=== PATIENT | female | born 1945 | race Caucasian/White ===

== ENCOUNTER 2016-12-13 13:45 | Emergency (ER) | payer BC ==
[2016-12-13 15:14] VITALS: BP 153/76
--- NOTE | 2016-12-13 17:16 | UC ---
Neck Pain HPI - HPI Summary HPI Summary: The patient comes in today for: 1. Neck pain: Onset: She has a history of chronic "cervical disk problems"--almost has surgery 5 years ago. She has more pain since November 05. It has slowly been worsening. It is now worse than two weeks ago, but her main concern is about the bowel and bladder symptoms. Palliative/provocative: Getting the head in the right position helps. Quality: Ache Region: Back of the neck with radiation down through the shoulders. Severity: 04/14 Time: Constant. Associated symptoms: She recently moved here and has not connected with a local neurologist. Numbness: None. Weakness: None for sure. Bowel: She will have a bowel movement with urination in the AM. She has not been soiling her clothes. Bladder: She will have some stress incontinence. She will notice that she will have a flow of urine down her thighs when she approaches the toilet, but not during the regular part of the day. She wears a pad during the day to help with minor leakage. She does not have any relationship with a local primary care provider or neurologist or neurosurgeon. She was told that she needs to come here to get a referral. She complains of pincher weakness. She states that she has a herniated disc and spurs and osteoarthritis. * - History of Current Complaint Chief Complaint: UCUpperExtremity Stated Complaint: NECK PAIN Time Seen by Provider: 12/13/16 17:05 Hx Obtained From: Patient Hx Last Menstrual Period: "years ago." ?: No - Allergies/Home Medications Allergies/Adverse Reactions: Allergies Allergy/AdvReac Type Severity Reaction Status Date / Time Cefuroxime [From Ceftin] Allergy Nausea And Verified 12/13/16 15:14 Vomiting Codeine AdvReac Severe Vomiting Verified 12/13/16 15:14 CATS Allergy Severe ASTHMA Uncoded 12/13/16 15:14 Home Medications: Home Medications Multiple Vitamins W/ Minerals [Vitamins & Minerals] 1 tab PO DAILY 12/13/16 [ History Confirmed 12/13/16] PMH/Surg Hx/FS Hx/Imm Hx Previously Healthy: No - Skin cancer (basal cell). Endocrine History Of: Reports: Thyroid Disease - Cold nodule removed in s. She has a history of cysts on Rx to suppres Denies: Diabetes, Hyperthyroidism, Hypothyroidism, Dyslipidemia Cardiovascular History Of: Denies: Cardiac Disorders, Hypertension, Pacemaker/ICD, Myocardial Infarction , Congestive Heart Failure, Atrial Fibrillation, Deep Vein Thrombosis, Bleeding Disorders Respiratory History Of: Reports: Asthma Denies: COPD, Bronchitis, Pneumonia, Pulmonary Embolism GI/ History Of: Reports: Gastroesophageal Reflux - She controls with not eating before bed. Denies: Ulcer, Gastrointestinal Bleed, Gall Bladder Disease, Kidney Stones, Diverticulitis, Renal Disease, Urosepsis Neurological History Of: Denies: TIA, CVA, Dementia, Seizures, Migraine Psychological History Of: Denies: Anxiety, Depression, Bipolar Disorder, Schizophrenia, Post Traumatic Stress Disorder Cancer History Of: Denies: Lung Cancer, Colorectal Cancer, Breast Cancer, Cervical Cancer Other History Of: Negative For: HIV, Hepatitis B, Hepatitis C, Anticoagulant Therapy - Surgical History Surgical History: Yes Surgery Procedure, Year, and Place: tubal ligation; shoulder repair rotator cuff ; basal cell from leg; deviated septum repair and uvula blocked - Family History Known Family History: Positive: Cardiac Disease Negative: Hypertension - Social History Alcohol Use: Occasionally Substance Use Type: None Smoking Status (MU): Never Smoked Tobacco Review Of Systems Constitutional: Positive: Negative Skin: Positive: Negative Eyes: Positive: Negative ENT: Positive: Negative Respiratory: Positive: Negative Cardiovascular: Positive: Negative Gastrointestinal: Positive: Negative Genitourinary: Positive: Negative All Other Systems Reviewed And Are Negative: Yes Physical Exam Triage Information Reviewed: Yes Appearance: Well-Appearing, No Pain Distress, Well-Nourished Vital Signs: Initial Vital Signs Temp 98.6 F 12/13/16 15:07 Pulse 86 12/13/16 15:07 Resp 16 12/13/16 15:07 BP 153/76 12/13/16 15:07 Pulse Ox 99 12/13/16 15:07 Eyes: Positive: Conjunctiva Clear. Negative: Discharge ENT: Positive: Hearing grossly normal. Negative: Pharyngeal erythema, Nasal congestion, Nasal drainage, TM bulging, TM dull, TM red, Tonsillar swelling, Tonsillar exudate Dental: Negative: Gross Decay/Caries @, Dental Fracture @ Neck: Positive: Supple, Nontender, No Lymphadenopathy, Nuchal Rigidity Respiratory: Positive: Chest non-tender, No respiratory distress, No accessory muscle use. Negative: Rhonchi, Wheezing Cardiovascular: Positive: RRR, No Murmur Abdomen Description: Positive: Nontender, No Organomegaly, Soft. Negative: Distended, Guarding Musculoskeletal: Positive: Strength Intact, ROM Intact, No Edema, Other: - Neck : She has slight reduction of flexion and extension. Likewise there is similar reduction in bilateral rotation and flexion. Reflexes (biceps, triceps and brachioradialis) 2+/2 x 2. She has symmetrical muscle strength of the biceps, triceps, deltoid and scanning clerk strength bilaterally that is appropriate for age. She has "thumbs up" and thumb in a fist tests which were normal as well as the "pincher" test. Neurological: Positive: Alert, Muscle Tone Normal Psychological: Positive: Age Appropriate Behavior, Consolable Skin: Negative: rashes, breakdown Neck Pain Course/Dx - Course Course Of Treatment: Chronic neck pain, - Differential Dx/Diagnosis Provider Diagnoses: chronic neck pain. Discharge - Discharge Plan Condition: Stable Disposition: HOME Referrals: Sandra MARRERO,Kanika [Primary Care Provider] - Ash Nicolas MD [Medical Doctor] - As Soon As Possible (Please contact the neurologists office for an appointment as soon as you can. If you don't do well , or get worse between now and then, please go to the ER. )
== END 2016-12-13 17:42 | disposition home or self-care (01) ==
LOC: UCEAST 13:45
DX: M54.2 Cervicalgia (principal); Z88.1 Allergy status to other antibiotic agents; Z88.5 Allergy status to narcotic agent
CPT/HCPCS: 99211; G0463

== ENCOUNTER 2017-07-19 09:07 | Day surgery (SDC) | payer BC ==
[~2017-07-19 09:07] MED LIST: Buffered Lidocaine 0.9% SYRIN* 5 ML/SYR SYRINGE INTRADERM ONE; Metoclopramide TAB* 10 MG PO ONE; Sodium Citrate/Citric Acid* 15 ML UDC PO ONE
[2017-07-19] MEDS ORDERED: Sodium Citrate/Citric Acid* 15 ML UDC ONE (09:17)
[2017-07-19] MEDS ORDERED: Metoclopramide TAB* 10 MG ONE (09:17)
[2017-07-19] MEDS ORDERED: Buffered Lidocaine 0.9% SYRIN* 5 ML/SYR SYRINGE ONE (09:17)
[2017-07-19 09:46] LABS: Hematocrit 43 % (35-47); Hemoglobin 14.4 g/dl (12.0-16.0); Mean Corpuscular HGB Conc 34 g/dl (31-36); Mean Corpuscular Hemoglobin 30 pg (27-31); Mean Corpuscular Volume 87 fL (80-97); Mean Platelet Volume 7 um3 (7.4-10.4); Red Blood Count 4.86 10^6/ul (4.0-5.4); Red Cell Distribution Width 14 % (10.5-15); White Blood Count 5.5 10^3/ul (3.5-10.8)
[2017-07-19] MEDS ORDERED: fentaNYL* 50 MCG/ML 2 ML VIAL (100 MCG VIAL) ONE (10:14)
[2017-07-19] MEDS ORDERED: Midazolam* 1 MG/ML 2 ML VIAL (2 MG) ONE (10:15)
[2017-07-19] MEDS ORDERED: Chloroprocaine 2%* 20 ML VIAL ONE (10:15)
[2017-07-19] MEDS ORDERED: Ondansetron INJ* 2 MG/ML VIAL IV PRN (10:36)
[2017-07-19] MEDS ORDERED: DiMENhydriNATE IV* 50 MG/ML VIAL IV PUSH PRN (10:36)
[2017-07-19] MEDS ORDERED: Ketorolac INJ* 30 MG/ML 1 ML VIAL IV PUSH PRN (10:38)
[2017-07-19] MEDS ORDERED: Hydrocodone/APAP 5/300 (NF) TAB PO PRN (10:59)
[2017-07-19] MEDS ORDERED: Ibuprofen TAB* 600 MG PO PRN (10:59)
[2017-07-19 12:16] VITALS: BP 129/66
--- NOTE | 2017-07-20 04:00 | OP ---
DATE OF OPERATION: 07/19/17 [facility] DATE OF : 49 SURGEON: Lida Lux MD. ANESTHESIOLOGIST: Dr. Dick Petersen. ANESTHESIA: Spinal. PRE-OP DIAGNOSES: Thickened endometrium, pelvic prolapse. POST-OP DIAGNOSES: Thickened endometrium, pelvic prolapse. OPERATIVE PROCEDURE: Dilation, hysteroscopy, curettage. ESTIMATED BLOOD LOSS: Minimal, less than 20 cc. COMPLICATIONS: None. SPONGE COUNT: Correct X2. CONDITION: The patient was brought to recovery room, awake and in stable condition. FINDINGS: Retroverted uterus, no adnexal masses palpated. There is a grade 2 cystocele, a grade 2 rectocele, and uterus and cervix prolapse up to the level of the introitus with complete relaxation. The cervix appears normal. The uterus sounds to 8. The uterus is retroverted. There were no adnexal masses palpated. There was a small amount of polypoid tissue on hysteroscopy. DESCRIPTION OF PROCEDURE: The patient was brought to the operating room, when spinal anesthesia was found to be adequate, the patient was prepped and draped in the usual sterile fashion in the dorsal lithotomy position. Exam under anesthesia was performed with the above findings noted. A weighted speculum was placed in the vagina. The anterior lip of the cervix was grasped with a single tooth tenaculum and the cervix was gently and easily dilated with graduated Avelar dilators. The hysteroscope was introduced with the above findings noted. A curettage was performed. The polyp was removed and the hysteroscope was reintroduced and there was no retained tissue within the uterus. The remainder of the endometrium appeared atrophic. Both tubal ostia were visualized. The single-tooth tenaculum was removed from the cervix. Excellent hemostasis was noted. All instruments were removed from the vagina. The patient tolerated the procedure well, was brought to recovery room awake, and in stable condition. [id number]/[facility] #: [id number] MTDD
== END 2017-07-19 12:26 | disposition home or self-care (01) ==
LOC: OR 09:07
PROVIDERS: ATTEND Obstetrics & Gynecology
DX: N85.8 Other specified noninflammatory disorders of uterus (principal); N81.89 Other female genital prolapse; E89.0 Postprocedural hypothyroidism
CPT/HCPCS: 36415; 85027; 86850; 86900; 86901; 88305; A9270-GY; J2250; J2400; J3010

== ENCOUNTER 2019-09-20 03:28 | Emergency (ER) | payer MEDICARE, BC ==
--- OUTSIDE RECORDS SUMMARY | 2019-09-20 03:56 | XMS REPORT | Continuity of Care Document ---
:1945 External Reference #:[id number] Author Name Phyllis Acharya MD (transmitted by agent of provider Nedra Odom ) Address [address] [place] [address] Care Team Providers Name Role Phone Lida Lux MD - Obstetrics & Care Team Information Electrophonic Engineer [phone] Gynecology Problems Active Problems Provider Date Hypothyroidism John Newell NP Onset: 11/05/1969 History of subtotal thyroidectomy John Newell NP Onset: 01/05/2017 Note: 1969's [place] Vitamin D deficiency John Newell NP Onset: 01/05/2017 Benign paroxysmal positional vertigo John Newell NP Onset: 01/05/2017 Neck pain John Newell NP Onset: 01/05/2017 Cystocele with unspecified uterine Kevin Louis M.D.,FACP Onset: 2016 prolapse Osteochondritis dissecans Lamberto Webb MD Onset: 10/12/2017 Obstructive sleep apnea syndrome Margaret Sandoval DNP, RN, Onset: 04/26/2018 [employer] SUPER[employer] Hypersomnia Margaret Sandoval DNP, RN, Onset: 04/26/2018 [employer] Closed fracture of distal end of Millie Chen M.D. Onset: 11/22/2018 radius Social History Type Date Description Comments Sex Unknown Tobacco Use Start: Unknown Never Smoked Cigarettes Smoking Status Reviewed: 08/27/19 Never Smoked Cigarettes ETOH Use Consumes 7 glasses of wine per week Tobacco Use Start: Unknown Patient has never smoked Recreational Drug Use Denies Drug Use Exercise Type/Frequency Exercises regularly Exercise Type/Frequency Walks daily 20 minutes daily with dog Allergies, Adverse Reactions, Alerts Active Allergies Reaction Severity Comments Date Ceftin 06/11/2015 Codeine Moderate n/v 01/05/2017 Medications Active Medications SIG Qnty Indications Ordering Provider Date Baclofen take 1 tablet by 30tabs S13.4xxA Gabriella Ortega MD 05/15/2019 10mg Tablets mouth every 8 hours as needed for muscle spasms Vaniqa apply to effected 45gm L68.0 Lida Lux MD 04/11/2019 13.9% Cream area as needed Meclizine HCL 1/2-1 by mouth 30tabs H81.311 Kevin Morales 02/18/2018 25mg three times a day Marty Louis,FACP Tablets as needed Citrucel 1 tblsp in 8 oz. 454gm Kevin Morales 07/05/2017 Powder water by mouth Marty Louis,FACP every morning asneeded Omeprazole 1 by mouth once 30caps R10.13 Kevin Morales 03/22/2017 20mg daily as needed Marty Louis,FACP Capsules DR Morris HFBerto 2 puffs by mouth 8.500gm Stalin Elkins NP 02/27/2017 every 4 hours as 108(90Base) mcg/Act needed Aerosol Vitamin D take one capsule Unknown (Ergocalciferol) by mouth once daily 5000Unit Capsules Multi Complete daily Unknown Capsules Advil 2-3 tabs twice a Unknown 200mg Capsules day prn Synthroid take 1 tablet by 90tabs E89.0 Kevin Morales 75mcg mouth every day Marty Louis,FACP Tablets Immunizations CPT Code Status Date Vaccine Reaction Lot # [id number] Given 09/04/2018 Fluzone High Dose 72725 Given 10/16/2017 Pneumococcal Conjugate [id number] Vaccine 13 Valent For Intramuscular Use 80827 Given 08/28/2017 Influenza Virus Vaccine, [id number] Quadrivalent, Split, Preservative Free 30561 Given 02/27/2017 Tdap - no immediate reaction [id number] Tetanus/Diptheria/Acellular -PW Pertussis 72527 Given 10/23/2012 Pneumonia Vaccine 17137 Given 08/14/2012 Zoster (Zostavax) Vital Signs Date Vital Result Comment 08/27/2019 11:56am Height 67 inches 5'7" Weight 206.00 lb BP Systolic 124 mmHg BP Diastolic 80 mmHg Pain Level 2 BMI (Body Mass Index) 32.3 kg/m2 07/18/2019 8:28am Height 67 inches 5'7" Weight 206.50 lb Heart Rate 78 /min BP Systolic Sitting 124 mmHg Lue large cuff BP Diastolic Sitting 78 mmHg Lue large cuff Respiratory Rate 20 /min O2 % BldC Oximetry 97 % On Ra BMI (Body Mass Index) 32.3 kg/m2 Results Test Date Facility Test Result H/L Range Note Laboratory test 04/23/2019 [facility] C Reactive 4.86 mg/L Normal <8.[address] [place] [address] [phone] Urine Culture And 04/11/2019 [facility] Urine Culture SEE RESULT [address] [place] [address] [phone] Urinalysis Profile 04/11/2019 [facility] Urine Color Yellow [address] [place] [address] [phone] Urine Appearance Clear Urine Specific [place] 1.017 Normal 1.010-1.030 Urine pH 7.0 Normal 5-9 Urine Urobilinogen Negative Negative Urine Ketones Negative Negative Urine Protein Negative Negative Urine Leukocytes Negative Negative Urine Blood Negative Negative Urine Nitrite Negative Negative Urine Bilirubin Negative Negative Urine Glucose Negative Negative CBC Auto 03/27/2019 [facility] White Blood 6.3 10^3/uL Normal 3.5-10.[address] [place] [address] [phone] Red Blood Count 4.72 10^6/uL Normal 3.70-4.87 Hemoglobin 14.0 g/dL Normal 12.0-16.0 Hematocrit 42 % Normal 35-47 Mean Corpuscular Volume 89 fL Normal 80-97 Mean Corpuscular Hemoglobin 30 pg Normal 27-31 Mean Corpuscular HGB Conc 33 g/dL Normal 31-36 Red Cell Distribution Width 13 % Normal 10.5-15 Platelet Count 214 10^3/uL Normal 150-450 Mean Platelet Volume 8.0 fL Normal 7.4-10.4 Abs Neutrophils 3.9 10^3/uL Normal 1.5-7.7 Abs Lymphocytes 1.7 10^3/uL Normal 1.0-4.8 Abs Monocytes 0.4 10^3/uL Normal 0-0.8 Abs Eosinophils 0.3 10^3/uL Normal 0-0.6 Abs Basophils 0.0 10^3/uL Normal 0-0.2 Abs Nucleated RBC 0.0 10^3/uL Granulocyte % 62.1 % Lymphocyte % 27.2 % Monocyte % 6.2 % Eosinophil % 4.1 % Basophil % 0.4 % Nucleated Red Blood Cells % 0.0 Comp Metabolic 03/27/2019 [facility] Sodium 142 mmol/L Normal 135-[address] [place] [address] [phone] Potassium 4.3 mmol/L Normal 3.5-5.0 Chloride 105 mmol/L Normal 101-111 Co2 Carbon Dioxide 32 mmol/L Normal 22-32 Anion Gap 5 mmol/L Normal 2-11 Glucose 89 mg/dL Normal 70-100 Blood Urea Nitrogen 22 mg/dL Normal 6-24 Creatinine 0.98 mg/dL High 0.51-0.95 BUN/Creatinine Ratio 22.4 High 8-20 Calcium 9.8 mg/dL Normal 8.6-10.3 Total Protein 6.8 g/dL Normal 6.4-8.9 Albumin 4.4 g/dL Normal 3.2-5.2 Globulin 2.4 g/dL Normal 2-4 Albumin/Globulin Ratio 1.8 Normal 1-3 Total Bilirubin 0.80 mg/dL Normal 0.2-1.0 Alkaline Phosphatase 69 U/L Normal 34-104 Alt 16 U/L Normal 7-52 Ast 16 U/L Normal 13-39 Egfr Non- 55.9 >60 Egfr 67.7 >60 2 Laboratory 03/27/2019 [facility] TSH (Thyroid 1.66 Normal 0.34 -5.60 test finding [address] Stim Horm) mcIU/[place] [address] [phone] C Reactive Protein 9.75 mg/L High <8.01 Vitamin B12 520 pg/mL Normal 180-914 3 Vitamin D Total 25(Oh) 35.2 ng/mL Normal 20-50 4 Lipase < 10 U/L Low 11.0-82.0 1 SEE RESULT BELOW Name: LAQUITA PATTERSON : [address]: Lida Lux MD Acct: [id number] Unit: [id number] AGE: 73 Location: [facility] Re04/11/19 SEX: F Status: REG REF SPEC: [id number] PATY: 04/11/19-[address]: Lida Lux MD REQ: [id number] RECD: 04/11/19 STATUS: COMP _ SOURCE: URINE SPDESC: ORDERED: Urine Culture COMMENTS: [id number] Procedure Result Reported Site Urine Culture Final 04/13/19- 0811 ML No growth of clinically significant organisms * ML - Main Lab . END OF REPORT DEPARTMENT OF PATHOLOGY, [address] [place] [address] Hamzah Martin M.D. Director [facility] # [id number] 2 Because ethnic data is not always readily available, this report includes an eGFR for both -Americans and non- Americans. The National Kidney Disease Education Program (NKDEP) does not endorse the use of the MDRD equation for patients that are not between the ages of 18 and 70, are , have extremes of body size, muscle mass, or nutritional status, or are non- or non-. According to the National Kidney Foundation, irrespective of diagnosis, the stage of the disease is based on the level of kidney function: Stage Description GFR(mL/min/1.73 m(2)) 1 Kidney damage with normal or decreased GFR 90 2 Kidney damage with mild decrease in GFR 60-89 3 Moderate decrease in GFR 30-59 4 Severe decrease in GFR 15-29 5 Kidney failure <15 (or dialysis) 3 Normal Range 180 to 914 Indeterminate Range 145 to 180 Deficient Range <145 4 Total 25-Hydroxyvitamin D2 and D3 (25-OH-VitD) <10 ng/mL (severe deficiency) 10-19 ng/mL (mild to moderate deficiency) 20-50 ng/mL (optimum levels) 51-80 ng/mL (increased risk of hypercalciuria) >80 ng/mL (toxicity possible) Procedures Date Code Description Status 12/11/2018 [id number] Mammogram Completed 08/30/2018 [id number] Colonoscopy Completed 12/10/2017 [id number] Mammogram Completed 10/19/2017 [id number] Bone Mineral Density Test Completed 11/08/2016 [id number] Mammogram Completed Medical Devices Description No Information Available Encounters Type Date Location Provider Dx Diagnosis Office Visit 07/18/2019 Pulmonology And Margaret G47.33 Obstructive sleep 8:15a [facility] Sandoval, RN, apnea (adult) [facility] SHIPPING 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-BC (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) Office Visit 05/23/2019 Neuro[facility] M50.30 Other cervical disc 2:30p Services Of Susanna Acharya MD degeneration, unsp cervical region Office Visit 05/15/2019 [facility] Internal Gabriella Ortega MD S13.4xxA Sprain of ligaments 1:20p Medicine - Ccmob of cervical spine, initial encounter Office Visit 04/23/2019 Sp[facility] Of Brittnee Walter M51.36 Other intervertebral 3:30p [facility] PA-C disc degeneration, lumbar region M43.16 Spondylolisthesis, lumbar region M41.9 Scoliosis, unspecified M48.061 Spinal stenosis, lumbar region without neurogenic wong M50.30 Other cervical disc degeneration, unsp cervical region Office Visit 04/11/2019 11:00a [facility], R32 Unspecified urinary [facility] incontinence N81.10 Cystocele, unspecified L68.0 Hirsutism Office Visit 03/27/2019 3:00p [facility] Internal Stalin Elkins NP Z00.00 Encntr for Medicine - Ccmob general adult medical exam w/o abnormal findings E03.9 Hypothyroidism, unspecified I10 Essential (primary) hypertension E78.2 Mixed hyperlipidemia G47.33 Obstructive sleep apnea (adult) (pediatric) M79.606 Pain in leg, unspecified I73.9 Peripheral vascular disease, unspecified R53.83 Other fatigue Office Visit 03/12/2019 Spine Navigator Brittnee Walter M43.16 Spondylolisthesis, 1:30p Of [facility] PA-C lumbar region Assessments Date Code Description Provider 08/27/2019 M50.30 Other cervical disc degeneration, Phyllis Acharya MD unspecified cervical regio 08/27/2019 M51.36 Other intervertebral disc Phyllis Acharya MD degeneration, lumbar region 08/27/2019 M43.16 Spondylolisthesis, lumbar region Phyllis Acharya MD 08/27/2019 M41.9 Scoliosis, unspecified Phyllis Acharya MD 08/27/2019 M48.061 Spinal stenosis, lumbar region Phyllis Acharya MD without neurogenic claudicati 07/18/2019 G47.33 Obstructive sleep apnea (adult) Margaret Sandoval DNP, RN, (pediatric) [facility]- 05/23/2019 M50.30 Other cervical disc degeneration, Phyllis Acharya MD unspecified cervical regio 05/15/2019 S13.4xxA Sprain of ligaments of cervical Gabriella MD [facility] spine, initial encounter 04/23/2019 M51.36 Other intervertebral disc Brittnee Walter PA-C degeneration, lumbar region 04/23/2019 M43.16 Spondylolisthesis, lumbar region Brittnee Walter PA-C 04/23/2019 M41.9 Scoliosis, unspecified LADAN Kennedy-Benjy 04/23/2019 M48.061 Spinal stenosis, lumbar region Brittnee Walter PA-C without neurogenic claudicati 04/23/2019 M50.30 Other cervical disc degeneration, Brittnee Walter PA-C unspecified cervical regio 04/11/2019 R32 Unspecified urinary incontinence Lida Lux MD 04/11/2019 N81.10 Cystocele, unspecified Lida Lxu MD 04/11/2019 L68.0 Hirsutism Lida Lux MD 03/27/2019 Z00.00 Encounter for general adult medical Stalin Elkins NP examination without abno 03/27/2019 E03.9 Hypothyroidism, unspecified Stalin Elkins NP 03/27/2019 I10 Essential (primary) hypertension Stalin Elkins NP 03/27/2019 E78.2 Mixed hyperlipidemia Stalin Elkins NP 03/27/2019 G47.33 Obstructive sleep apnea (adult) Stalin Elkins NP (pediatric) 03/27/2019 M79.606 Pain in leg, unspecified Stalin Elkins NP 03/27/2019 I73.9 Peripheral vascular disease, Stalin Elkins NP unspecified 03/27/2019 R53.83 Other fatigue Stalin Elkins NP 03/12/2019 M43.16 Spondylolisthesis, lumbar region Brittnee Walter PA-C Plan of Treatment Future Appointment(s):11/14/2019 10:30 am - Phyllis Acharya MD at [facility]08/27/2019 - Phyllis Acharya, MDM50.30 Other cervical disc degeneration, unsp cervical regionNew Xrays:MRI Thoracic Spine W/O , Ordered: 08/27/19M51.36 Other intervertebral disc degeneration, lumbar regionNew Therapy:Physical TherapyFollow up:RV in 2 months after MRI of T spine. Patient will lonnie if she would like to proceed with surgery earlier.M43.16 Spondylolisthesis, lumbar ckldyoE16.9 Scoliosis, dqbqjzyuiehI73.061 Spinal stenosis, lumbar region without neurogenic wong Functional Status Description No Information Available Mental Status Description No Information Available Referrals Refer to Reason for Referral Status Appt Date Tonny Milner MD Sent 06/17/2019 [address] [place] [address] [phone] Carl Fleming MD Sent 08/08/[address] [place] [id number] [phone]
--- OUTSIDE RECORDS SUMMARY | 2019-09-20 03:56 | XMS REPORT | Continuity of Care Document ---
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 Gynecology Problems Active Problems Provider Date Hypothyroidism John Newell NP Onset: 11/05/1969 History of subtotal thyroidectomy John Newell NP Onset: 01/05/2017 Note: s [place] Vitamin D deficiency John Newell NP Onset: 01/05/2017 Benign paroxysmal positional vertigo John Newell NP Onset: 01/05/2017 Neck pain John Newell NP Onset: 01/05/2017 Cystocele with unspecified uterine Kevin Lousi M.D.,FACP Onset: 2016 prolapse Osteochondritis dissecans Lamberto Webb MD Onset: 10/12/2017 Obstructive sleep apnea syndrome Margaret Sandoval DNP, RN, Onset: 04/26/2018 SPECIALTY DEVELOPMENT CONSULTANT-BC Hypersomnia Margaret Sandoval DNP, RN, Onset: 04/26/2018 SPECIALTY DEVELOPMENT CONSULTANT-BC Closed fracture of distal end of Millie [...] Vaniqa apply to effected 45gm L68.0 Lida Lxu MD 04/11/2019 13.9% Cream area as needed Meclizine HCL 1/2-1 by mouth 30tabs H81.311 Kevin Morales 02/18/2018 25mg three times a day Mraty Louis,FACP Tablets as needed Citrucel 1 tblsp [...] Code Status Date Vaccine Reaction Lot # [id number] Given 09/04/2018 Fluzone High Dose 10648 Given 10/16/2017 Pneumococcal Conjugate [id number] Vaccine 13 Valent For Intramuscular Use 55340 Given 08/28/2017 Influenza Virus Vaccine, [id number] Quadrivalent, Split, Preservative Free 53107 Given 02/27/2017 Tdap - no immediate reaction [id number] Tetanus/Diptheria/Acellular -PW Pertussis 04993 Given 10/23/2012 Pneumonia Vaccine [id number] Given 08/14/2012 Zoster (Zostavax) Vital Signs Date [...] Result H/L Range Note Laboratory test 04/23/2019 [facility] C Reactive 4.86 mg/L Normal <8.[address] [place] [address] [phone] Urine Culture And 04/11/2019 [facility] Urine Culture SEE RESULT [address] [place] [address] [phone] Urinalysis Profile 04/11/2019 [facility] Urine Color Yellow [address] [place] [address] [phone] Urine Appearance Clear Urine Specific [place] 1.017 Normal 1.010-1.030 Urine pH 7.0 Normal 5-9 Urine Urobilinogen Negative Negative Urine Ketones Negative Negative Urine Protein Negative Negative Urine Leukocytes Negative Negative Urine Blood Negative Negative Urine Nitrite Negative Negative Urine Bilirubin Negative Negative Urine Glucose Negative Negative CBC Auto 03/27/2019 [facility] White Blood 6.3 10^3/uL Normal 3.5-10.[address] [place] [address] [phone] Red Blood Count 4.72 10^6/uL Normal 3.70-4.87 [...] Blood Cells % 0.0 Comp Metabolic 03/27/2019 [facility] Sodium 142 mmol/L Normal 135-[address] [place] [address] [phone] Potassium 4.3 mmol/L Normal 3.5-5.0 Chloride 105 [...] >60 Egfr 67.7 >60 2 Laboratory 03/27/2019 [facility] TSH (Thyroid 1.66 Normal 0.34 -5.[address] Stim Horm) mcIU/[place] [address] [phone] C Reactive Protein 9.75 mg/L High <8.01 Vitamin B12 520 pg/mL Normal 180-914 3 Vitamin D Total 25(Oh) 35.2 ng/mL Normal 20-50 4 Lipase < 10 U/L Low 11.0-82.0 1 SEE RESULT BELOW Name: LAQUITA PATTERSON : [address]: Lida Lux MD Acct: [id number] Unit: [id number] AGE: 73 Location: [facility] Re04/11/19 SEX: F Status: REG REF SPEC: [id number] PATY: 04/11/19-[address] [facility] [address]: Lida Lux MD REQ: [id number] RECD: 04/11/19 STATUS: COMP _ SOURCE: URINE SPDESC: ORDERED: Urine Culture COMMENTS: [id number] Procedure Result Reported Site Urine Culture Final 04/13/19- 0811 ML No growth of clinically significant organisms * ML - Main Lab . END OF REPORT DEPARTMENT OF PATHOLOGY, [address] [place] [address] Hamzah Martin M.D. Director [facility] # [id number] 2 Because ethnic data is not always [...] possible) Procedures Date Code Description Status 12/11/2018 [id number] Mammogram Completed 08/30/2018 [id number] Colonoscopy Completed 12/10/2017 [id number] Mammogram Completed 10/19/2017 [id number] Bone Mineral Density Test Completed 11/08/2016 [id number] Mammogram Completed Medical Devices Description No Information Available Encounters Type Date Location Provider Dx Diagnosis Office Visit 07/18/2019 Pulmonology And Margaret G47.33 Obstructive sleep 8:15a [facility] BEN Sandoval, RN, apnea (adult) [facility] SPECIALTY DEVELOPMENT CONSULTANT-BC (pediatric) Office Visit 05/23/2019 Neurosurgery Vassilios M50.30 Other cervical disc 2:30p Services Of Susanna Acharya MD degeneration, unsp cervical region Office Visit 05/15/2019 [facility] Internal Gabriella Ortega MD S13.4xxA Sprain of ligaments 1:20p Medicine - Ccmob of cervical spine, initial encounter Office Visit 04/23/2019 Spine Navigator Of Brittnee Walter M51.36 Other intervertebral 3:30p [facility] PA-C disc degeneration, lumbar region M43.16 Spondylolisthesis, lumbar region M41.9 Scoliosis, unspecified M48.061 Spinal stenosis, lumbar region without neurogenic wong M50.30 Other cervical disc degeneration, unsp cervical region Office Visit 04/11/2019 11:00a [facility] [place], R32 Unspecified urinary Clinic of [facility] incontinence N81.10 Cystocele, unspecified L68.0 Hirsutism Office Visit 03/27/2019 3:00p [facility] Internal Stalin Elkins NP Z00.00 Encntr for Medicine - Ccmob general adult medical exam w/o abnormal findings E03.9 Hypothyroidism, unspecified I10 Essential (primary) hypertension E78.2 Mixed hyperlipidemia G47.33 Obstructive sleep apnea (adult) (pediatric) M79.606 Pain in leg, unspecified I73.9 Peripheral vascular disease, unspecified R53.83 Other fatigue Office Visit 03/12/2019 Spine Navigator Brittnee Walter M43.16 Spondylolisthesis, 1:30p Of [facility] PA-C lumbar region Assessments Date Code [...] apnea (adult) Margaret Sandoval DNP, RN, (pediatric) [facility]- 05/23/2019 M50.30 Other cervical disc degeneration, Phyllis Acharya MD unspecified cervical regio 05/15/2019 S13.4xxA Sprain of ligaments of cervical Gabriellarosalind Ortega MD spine, initial encounter 04/23/2019 M51.36 Other intervertebral disc Brittnee Walter PA-C degeneration, lumbar region 04/23/2019 M43.16 Spondylolisthesis, lumbar region LADAN Kennedy-C 04/23/2019 M41.9 Scoliosis, unspecified LADAN Kennedy-C 04/23/2019 M48.061 Spinal stenosis, lumbar region Brittnee Walter PA-C without neurogenic claudicati 04/23/2019 M50.30 Other cervical disc degeneration, LADAN Kennedy-C unspecified cervical regio 04/11/2019 R32 Unspecified urinary incontinence Lida Lux MD 04/11/2019 N81.10 Cystocele, unspecified Lida Lux MD 04/11/2019 L68.0 Hirsutism Lida Lux MD 03/27/2019 Z00.00 Encounter for general adult medical Stalin Elkins NP examination without abno 03/27/2019 E03.9 Hypothyroidism, unspecified Stalin Elkins NP 03/27/2019 I10 Essential (primary) hypertension Stalin Elkins NP 03/27/2019 E78.2 Mixed hyperlipidemia Stalin Elkins NP 03/27/2019 G47.33 Obstructive sleep apnea (adult) Stalin Elkins NP (pediatric) 03/27/2019 M79.606 Pain in leg, unspecified Stalinjoni Elkins NP 03/27/2019 I73.9 Peripheral vascular disease, Stalin Elkins NP unspecified 03/27/2019 R53.83 Other fatigue Stalin Elkins NP 03/12/2019 M43.16 Spondylolisthesis, lumbar region Brittnee Walter PA-C Plan of Treatment Future Appointment(s):11/14/2019 10:30 am - Phyllis Acharya MD at [facility]08/27/2019 - Vassilios Dimopoulos, MDM50.30 Other cervical disc degeneration, unsp cervical regionNew Xrays:MRI Thoracic Spine W/O , Ordered: 08/27/19M51.36 Other intervertebral disc degeneration, lumbar regionNew Therapy:Physical TherapyFollow up:RV in 2 months after MRI of T spine. Patient will lonnie if she would like to proceed with surgery earlier.M43.16 Spondylolisthesis, lumbar hdcnwgJ00.9 Scoliosis, kkwnjhwkkpjC89.061 Spinal stenosis, lumbar region without neurogenic wong Functional Status Description No Information Available Mental Status Description No Information Available Referrals Refer to Reason for Referral Status Appt Date Tonny Milner MD Sent 06/17/2019 [address] [place] [address] [phone] Carl Fleming MD Sent 08/08/[address] [place] [address] [phone]
[2019-09-20 04:24] LABS: ABS Eosinophils 0.2 10^3/ul (0-0.6); ABS Lymphocytes 2.1 10^3/ul (1.0-4.8); ABS Monocytes 0.4 10^3/ul (0-0.8); ABS Neutrophils 3.8 10^3/ul (1.5-7.7); Eosinophil % 3.6 %; Hematocrit 45 % (35-47); Hemoglobin 14.9 g/dL (12.0-16.0); Lymphocyte % 31.9 %; Mean Corpuscular HGB Conc 34 g/dL (31-36); Mean Corpuscular Hemoglobin 30 pg (27-31); Mean Corpuscular Volume 91 fL (80-97); Mean Platelet Volume 7.3 fL (7.4-10.4); Nucleated Red Blood Cells % 0.1; Platelet Count 171 10^3/uL (150-450); Red Blood Count 4.91 10^6 /uL (3.70-4.87); Red Cell Distribution Width 14 % (10-15); White Blood Count 6.6 10^3/uL (3.5-10.8)
--- NOTE | 2019-09-20 04:25 | ED ---
HPI Chest Pain - HPI Summary HPI Summary: This pt is a 74 Y/O F presenting to [facility] with a CC of chest pain that is currently rated a 5/10 in severity and states that the pain, which is described as pressure, woke her up at 0130. 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 She states that the pain is located underneath her L shoulder blade and occasionally radiates into her L jaw. She states that she got changed and then tried to fall back asleep. She denies any fevers, chills, SOB, headaches, and N/V. She states that she has radiculopathy, which wakes her up in the night if she does not readjust her position but states that the pain usually resolves after she goes to the bathroom. She has no aggravating or alleviating factors. She has a PMHx of sleep apnea, radiculopathy and HTN. - History of Current Complaint Chief Complaint: EDChestWallPain Time Seen by Provider: 09/20/19 04:10 Hx Obtained From: Patient Hx Last Menstrual Period: "years ago." Onset/Duration: Started Hours Ago - 3, Still Present Time of Onset: 01:30 Timing: Constant Initial Severity: Moderate Current Severity: Moderate Pain Intensity: 5 Pain Scale Used: 0-10 Numeric Chest Pain Location: Left Anterior Chest Pain Radiates: Yes Chest Pain Radiates To:: Shoulder, Jaw Character: Pressure/Squeezing Aggravating Factor(s): Nothing Alleviating Factor(s): Nothing Associated Signs and Symptoms: Positive: Chest Pain - left anterior, Other: - radiated pain in her L jaw and L shoulder. Negative: Headaches, Shortness of Breath, Fever, Chills, Nausea, Vomiting - Allergy/Home Medications Allergies/Adverse Reactions: Allergies Allergy/AdvReac Type Severity Reaction Status Date / Time cefuroxime Allergy Nausea And Verified 08/25/19 13:57 Vomiting codeine Allergy Vomiting Verified 08/25/19 13:57 CATS Allergy Severe ASTHMA Uncoded 08/25/19 13:57 PMH/Surg Hx/FS Hx/Imm Hx Previously Healthy: Yes Endocrine/Hematology History: Reports: Hx Thyroid Disease Denies: Hx Anticoagulant Therapy, Hx Diabetes, Hx Anemia Cardiovascular History: Denies: Hx Congestive Heart Failure, Hx Deep Vein Thrombosis, Hx Hypertension , Hx Myocardial Infarction, Hx Pacemaker/ICD Respiratory History: Reports: Hx Asthma - HAS INHALER, USES PRN, Hx Sleep Apnea - STATES YEARS AGO Dx, HAD SURGERY ON PALET, STILL HAS MINIMAL PROBLEMS Denies: Hx Chronic Obstructive Pulmonary Disease (COPD), Hx Lung Cancer, Hx Pneumonia, Hx Pulmonary Embolism GI History: Denies: Hx Gall Bladder Disease, Hx Gastrointestinal Bleed, Hx Jaundice, Hx Ulcer, Hx Urosepsis History: Reports: Hx Kidney Stones - 1979, PASSED ON OWN, NONE SINCE Denies: Hx Renal Disease Musculoskeletal History: Reports: Other Musculoskeletal History - 2010 FRACTURED THORACIC (NO SURGERY) WORE BRACE Denies: Hx Osteoporosis Sensory History: Reports: Hx Contacts or Glasses - GLASSES Denies: Hx Hearing Aid Opthamlomology History: Reports: Hx Contacts or Glasses - GLASSES Neurological History: Reports: Other Neuro Impairments/Disorders - Hx OF VIRTIGO , NO PROBLEMS RECENT YEARS / PAIN CLINIC PT. LUMBAR Denies: Hx Dementia, Hx Migraine, Hx Seizures, Hx Transient Ischemic Attacks (TIA) Psychiatric History: Reports: Hx Anxiety, Hx Depression - OCCASSIONAL, HAS TAKEN MEDS IN PAST , NON CURRENTLY Denies: Hx Panic Disorder, Hx Schizophrenia, Hx Bipolar Disorder - Cancer History Cancer Type, Location and Year: BASAL CELL LEGS Hx Chemotherapy: No Hx Radiation Therapy: No - Surgical History Surgical History: Yes Surgery Procedure, Year, and Place: 1971 tubal ligation; [facility]. 2011 Rt shoulder repair rotator cuff; [place]. 1999 basal cell from Rt leg; [facility]. 1997 deviated septum repair and uvula/soft palate reduction [place]. 2017 [facility] for benign uterine polyp. 1972 PARTIAL THYROIDECTOMY [place]. Lt BREAST BIOPSY CLIPS - BENIGN [place] Hx Anesthesia Reactions: No Infectious Disease History: No Infectious Disease History: Denies: Hx Clostridium Difficile, Hx Hepatitis, Hx Human Immunodeficiency Virus (HIV), Hx of Known/Suspected MRSA, Hx Shingles, Hx Tuberculosis, Hx Known/ Suspected VRE, Hx Known/Suspected VRSA, History Other Infectious Disease, Traveled Outside the [place] in Last 30 Days - Family History Known Family History: Positive: Cardiac Disease Negative: Hypertension - Social History Occupation: Retired Lives: Alone Alcohol Use: Daily Alcohol Amount: 2-3 drinks Substance Use Type: Reports: None Hx Tobacco Use: No Smoking Status (MU): Never Smoked Tobacco Review of Systems Negative: Fever, Chills Positive: Chest Pain - left anterior Negative: Shortness Of Breath Negative: Vomiting, Nausea Musculoskeletal: Other - radiated L jaw pain and L shoulder pain Negative: Headache All Other Systems Reviewed And Are Negative: Yes Physical Exam - Summary Physical Exam Summary: Appearance: Well-appearing, Well-nourished, lying in bed comfortably Skin: Warm, dry, no obvious rash Eyes: sclera anicteric, no conjunctival pallor ENT: mucous membranes moist, pharynx appears normal Neck: Supple, nontender Respiratory: Clear to auscultation, no signs of respiratory distress Cardiovascular: Normal S1, S2. No murmurs. Normal distal pulses in tibial and radial bilaterally. Abdomen: Soft, nontender, normal active bowel sounds present Musculoskeletal: Normal, Strength/ROM Intact Neurological: A&Ox3, awake and alert, mentation is normal, speech is fluent and appropriate Psychiatric: affect is normal, does not appear anxious or depressed Triage Information Reviewed: Yes Vital Signs On Initial Exam: Initial Vitals Temp Pulse Resp BP Pulse Ox 98.0 F 91 18 184/91 98 09/20/19 03:38 09/20/19 03:38 09/20/19 03:38 09/20/19 03:38 09/20/19 03:38 Vital Signs Reviewed: Yes Procedures - Sedation Patient Received Moderate/Deep Sedation with Procedure: No Diagnostics - Vital Signs Vital Signs Temp Pulse Resp BP Pulse Ox 09/20/19 03:38 98.0 F 91 18 184/91 98 - Laboratory Result Diagrams: 09/20/19 04:07 09/20/19 06:28 Lab Statement: Any lab studies that have been ordered have been reviewed, and results considered in the medical decision making process. - Radiology CXR Radiology Interpretation Completed By: ED Physician Summary of Radiographic Findings: No acute processes, pending offical review. Re-Evaluation - Re-Evaluation First Eval Re-Evaluation Time: 06:56 Change: Unchanged Comment: Pt has a heart score of 2. Chest Pain Course/Dx - Course Course Of Treatment: This pt is a 74 Y/O F presenting to [facility] with a CC of chest pain that is currently rated a 5/10 in severity and states that the pain, which is described as pressure, woke her up at 0130. 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 She states that the pain is located underneath her L shoulder blade and occasionally radiates into her L jaw. She states that she got changed and then tried to fall back asleep. She denies any fevers, chills, SOB, headaches, and N/V. Her PE found no abnormalities. Her CXR has no acute processes. She will be a sign out to Dr. Reeder at shift change 0700 09/20/19 pending her 2nd Troponin. She has a HEART score of 2 and a Dx of chest pain. - Diagnoses Provider Diagnoses: Chest pain Discharge ED - Sign-Out/Discharge Documenting (check all that apply): Sign-Out Patient Signing out patient TO: Tony Reeder - Discharge Plan Condition: Good Disposition: HOME Patient Education Materials: Chest Pain (ED) Referrals: Gabriella Ortega MD [Primary Care Provider] - 3 Days - Billing Disposition and Condition Condition: GOOD Disposition: Home - Attestation Statements Document Initiated by Ilyae: Yes Documenting Scribe: Rocky Bryant Provider For Whom Garrick is Documenting (Include Credential): Jose Burr MD Scribe Attestation: Rocky Trejo, scribed for Jose Burr MD on 09/20/19 at 2127. Scribe Documentation Reviewed: Yes Provider Attestation: The documentation as recorded by the Rocky mauricio accurately reflects the service I personally performed and the decisions made by Jose mcdonald MD Status of Scribe Document: Viewed
[2019-09-20 04:29] LABS: ALT 19 U/L (7-52); Albumin 4.4 g/dL (3.2-5.2); Albumin/Globulin Ratio 1.4 (1-3); Alkaline Phosphatase 61 U/L (34-104); BUN/Creatinine Ratio 21.7 (8-20); Blood Urea Nitrogen 20 mg/dL (6-24); CO2 Carbon Dioxide 25 mmol/L (22-32); Calcium 9.5 mg/dL (8.6-10.3); Chloride 104 mmol/L (101-111); EGFR African American 72.6 (>60); Globulin 3.1 g/dL (2-4); Glucose 84 mg/dL (70-100); Sodium 136 mmol/L (135-145); Total Protein 7.5 g/dL (6.4-8.9)
[2019-09-20 04:38] LABS: Anion Gap 7 mmol/L (2-11)
[2019-09-20 07:08] LABS: Potassium Redraw 4.1 mmol/L (3.5-5.0)
--- NOTE | 2019-09-20 07:19 | ED ---
Progress - Progress Note Progress Note: This patient was signed out from Dr. Burr to Dr. Reeder at 0700 on 09/20/19, pending disposition, awaiting second troponin. Second troponin is 0. The patient s condition is stable and will be discharged to home with Dx of chest pain. Re-Evaluation - Re-Evaluation First Eval Re-Evaluation Time: 08:01 Change: Unchanged Comment: Discussed results and plan of care with pt. Course/Dx - Course Course Of Treatment: This patient was signed out by Dr. Quijano at shift change. He reports that the patient came in with the chief complaint of chest pain, he has done all the workup has been negative. He recommends to get a second troponin and if the troponin is negative for the patient to be discharged home with follow-up with primary care physician. Dr. Quijano reports that the heart score is equal to 2. I discussed all the findings and test results with the patient. Patient was instructed to return to the emergency room immediately if any of the symptoms return or worsens. Plan of care was discussed with the patient, who understands and agrees. All questions were answered to patient's satisfaction. There were no further complaints or concerns. Lung exam before discharge: CTA B/L. Good air exchange. No wheezing or crackles heard. CVS: S1 and S2 present. No murmurs appreciated. Patient is alert and oriented x 3. Patient is hemodynamically stable. Patient will be discharged home with follow up PCP in the next 2-3 days - Diagnoses Provider Diagnoses: Chest pain Discharge ED - Sign-Out/Discharge Documenting (check all that apply): Patient Departure - Discharge - Discharge Plan Condition: Good Disposition: HOME Patient Education Materials: Chest Pain (ED) Referrals: Gabriella Ortega MD [Primary Care Provider] - 3 Days - Billing Disposition and Condition Condition: GOOD Disposition: Home - Attestation Statements Document Initiated by Scribe: Yes Documenting Scribe: Madhuri Pickering Provider For Whom Garrick is Documenting (Include Credential): Tony Reeder MD Scribe Attestation: Madhuri Trejo scribed for Tony Reeder MD on 09/20/19 at 1104. Scribe Documentation Reviewed: Yes Provider Attestation: The documentation as recorded by the Madhuri mauricio accurately reflects the service I personally performed and the decisions made by me, Tony Reeder MD Status of Scribe Document: Viewed
[2019-09-20 07:45] VITALS: BP 130/66
== END 2019-09-20 08:00 | disposition home or self-care (01) ==
LOC: ED 03:28
DX: R07.89 Other chest pain (principal); R68.84 Jaw pain; M25.512 Pain in left shoulder; J45.909 Unspecified asthma, uncomplicated; Z88.1 Allergy status to other antibiotic agents; Z88.5 Allergy status to narcotic agent; Z91.09 Other allergy status, other than to drugs and biological substances
CPT/HCPCS: 36415; 71046; 80053; 83605; 84484; 85025; 93005; 99283